=== PATIENT | female | born 1990 | race African-American/Black ===

== ENCOUNTER 2020-06-13 00:10 | Emergency (ER) | payer MEDICAID ==
[~2020-06-13] VITALS: Ht 160 cm; Wt 45.8 kg
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
[2020-06-13 01:18] LABS: BILIRUBIN,URINE NEG (NEG); CLARITY,URINE CLEAR; COLOR,URINE YELLOW; GLUCOSE,URINE NEG (NEG); NITRITE,URINE POS (NEG)
[2020-06-13 01:19] LABS: BACTERIA,URINE FEW /HPF (0-FEW); RBC,URINE 0 /HPF (0-2); SQUAMOUS EPITHELIAL CELL,UR MOD /LPF
[2020-06-13 01:20] LABS: U PREG PATIENT NEGATIVE (NEG)
[2020-06-13] MEDS ORDERED: CEPH500C PO (01:27)
[2020-06-13] MEDS ORDERED: CEPHALEXIN 250 MG CAPSULE PO ONE (01:30)
[2020-06-13 01:38] VITALS: BP 122/96
== END 2020-06-13 01:38 | disposition home or self-care (01) ==
LOC: ER 00:10
DX: N39.0 Urinary tract infection, site not specified (principal); K92.1 Melena; R51.9 Headache, unspecified
CPT/HCPCS: 81001; 81025; 87086; 99284

== ENCOUNTER 2020-06-14 06:20 | Emergency (ER) | payer MEDICAID ==
[~2020-06-14] VITALS: Ht 160 cm; Wt 45.8 kg
[~2020-06-14 06:20] MED LIST: CEPH500C PO
--- NOTE | 2020-06-14 06:56 | PHYS DOC ---
Past History Past Medical History: Other Additional Past Medical Histor: [facility] Past Surgical History: No Surgical History Alcohol Use: None General Adult EDM: Chief Complaint: OTHER COMPLAINTS HPI: HPI: 30-year-old female who denies any past medical history presents the ED with complaints of " I am scared to leave my house, they are going to get me." States "sometimes the TV talks to me and tells me I've done something wrong." Pt was seen in ED yesterday for nitrate positive UTI and hematuria. Patient did not fill her prescription. 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 States she was so scared that she smoked marijuana last night with her mother. Reports family history of schizoaffective disorder and bipolar disorder. Denies SI/HI. Yesterday reported people were putting a "hex" on her. Review of Systems: Review of Systems: Constitutional: Denies fever or chills Eyes: Denies change in visual acuity HENT: Denies nasal congestion or sore throat Respiratory: Denies cough or shortness of breath Cardiovascular: Denies chest pain or edema GI: Denies abdominal pain, nausea, vomiting, bloody stools or diarrhea : Denies dysuria or hematuria Musculoskeletal: Denies back pain or joint pain Integument: Denies rash or diaphoresis Neurologic: Denies headache, focal weakness or sensory changes Endocrine: Denies polyuria or polydipsia Lymphatic: Denies swollen glands Psychiatric: Denies depression or anxiety Allergies: Allergies: Allergies Coded Allergies Type Severity Reaction Last Updated Verified Unable to Assess 06/13/20 No Physical Exam: PE: Constitutional: Well developed, well nourished, no acute distress, non-toxic appearance. HENT: Normocephalic, atraumatic, Eyes: EOMI, conjunctiva normal, no discharge. Neck: Normal range of motion, supple, Cardiovascular: S1/2 present, regular rhythm Lungs & Thorax: Speaking in full sentences, bilateral equal chest rise, no tachypnea or increased work of breathing Abdomen: soft, no tenderness, Skin: Warm, dry, no erythema, no rash. [] Back: No tenderness, no CVA tenderness. [] Extremities: No tenderness, no cyanosis, no edema Neurologic: Alert and oriented X 3, normal motor function, normal sensory function, no focal deficits noted. [] Psychologic: flat affect, depressed and tearful, mood-flat affect, depressed, very disorganized thought processing - hard to discern given random thought processing, also appears intoxicated Current Patient Data: Vital Signs: Vital Signs Date Time Temp Pulse Resp B/P (MAP) Pulse Ox O2 Delivery O2 Flow Rate FiO2 06/14/20 06:30 99.1 91 18 120/82 (95) 99 Room Air EKG: EKG: [] Radiology/Procedures: Radiology/Procedures: [] Heart Score: Risk Factors: Risk Factors: DM, Current or recent (<one month) smoker, HTN, HLP, family history of CAD, obesity. Risk Scores: Score 0 - 3: 2.5% MACE over next 6 weeks - Discharge Home Score 4 - 6: 20.3% MACE over next 6 weeks - Admit for Clinical Observation Score 7 - 10: 72.7% MACE over next 6 weeks - Early Invasive Strategies Course & Med Decision Making: Course & Med Decision Making Pertinent Labs and Imaging studies reviewed. (See chart for details) Patient presents to the ED with paranoia, persecutory delusions, auditory hallucinations and very disorganized thought processing, concerning for new onset schizophrenia vs acute psychosis. Pt is medically cleared. PAT team assessed pt and majority of pts' sxs resolved. On re-eval patient with clear thought processing, no paranoia, with medical decision capacity and not a danger to herself or others. Suspect substance-induced mood disorder with paranoia. If there is some type of underlying mental illness, patient very reasonable now with no hallucinations or disorganized thought processing and has medical decision-making capacity. Agrees with outpatient management. Discouraged marijuana use. Will discharge home with strict ED return precautions were given for psychosis, suicidal or homicidal ideations. Encouraged urgent outpatient follow-up with PMD and psychiatry, or sign guidance Center. Life-threatening processes were considered but are low suspicion at this time, given history, physical exam and ED workup. Pt was educated on all prescription medications and adverse effects. All patient's questions were answered and pt was stable at time of discharge. Life/limb-threatening differential includes but is not limited to, end organ damage/sepsis, trauma/abuse/neglect, neurologic deficit, alcohol/drug ingestion, toxidrome, suicidal/homicidal ideations plans or attempts, psychosis or mental illness resulting in self neglect and inability to care for self. I spoken with the patient and her caregivers. I explained the patient's condition, diagnoses and treatment plan based on the information available to me at this time. I have answered the patient and her caregiver's questions and addressed any concerns. The patient and her caregivers have a good understanding of patient's diagnosis, condition and treatment plan as can be expected at this point. Vital signs have been stable. Patient's condition is stable and appropriate for discharge from the emergency department. Patient will pursue further outpatient evaluation with primary care physician or other designated or consulting physician as outlined in the discharge instructions. The patient and/or caregivers are agreeable to this plan of care and follow-up instructions have been explained in detail. The patient and/or caregivers have received these instructions in written form and have expressed an understanding of the discharge instructions. The patient and/or caregivers are aware that any significant change of condition or worsening of symptoms should prompt immediate return to this or the closest emergency department or call to [facility]. Seb Disclaimer: Dragjohnny Disclaimer: This electronic medical record was generated, in whole or in part, using a voice recognition dictation system. Departure Departure: Impression: Primary Impression: Substance induced mood disorder Additional Impressions: Mild tetrahydrocannabinol (THC) abuse Auditory hallucinations Disposition: 01 DC HOME SELF CARE/HOMELESS Condition: STABLE Referrals: PCP,NO (PCP) FOLLOW UP WITH FAMILY MEDICINE: [facility], [facility] [address] [facility] [address] [place] [address], [facility] Instructions: Hallucinations and Delusions, Mood Disorders, Substance Abuse-Brief Additional Instructions: FOLLOW UP WITH PSYCHIATRY: [facility] [address] , [facility] [address] [place] [address] [facility] [address] [place] [address] Becky DELATORRE [address], [facility] [address] [place] [address] [facility] [address] [place] [address] [employer], [facility] 24/12 crisis stabilization services [address] [place] [address] EMERGENCY DEPARTMENT GENERAL DISCHARGE INSTRUCTIONS Thank you for coming to [facility] (ED) today and trusting us with you care. We trust that you had a positivie experience in our Emergency Department. If you wish to speak to the department management, you may call the director at [phone]. YOUR FOLLOW UP INSTRUCTIONS ARE FOLLOWS: 1. Do you have a private Doctor? If you do not have a private doctor, please ask for a resource list of physicians or clinics that may be able to assist you with follow up care. 2. The Emergency Physician has interpreted your x-rays. The X-Ray specialist will also review them. If there is a change in the findings, you will be notified in 48 hours when at all possible. 3. A lab test or culture has been done, your results will be reviewed and you will be notified if you need a change in treatment. ADDITIONAL INSTRUCTIONS AND INFORMATION: 1. Your care today has been supervised by a physician who is specially trained in emergency care. Many problems require more than one evaluation for a complete diagnosis and treatment. We recommend that you schedule your follow up appointment as recommended to ensure complete treatment of you illness or injury. If you are unable to obtain follow up care and continue to have a problem, or if your condition worsens, we recommend that you return to the ED. 2. We are not able to safely determine your condition over the phone nor are we able to give sound medical advice over the phone. For these safety reasons, if you call for medical advice we will ask you to come to the ED for further evaluation. 3. If you have any questions regarding these discharge instructions please call the ED at [phone]. SAFETY INFORMATION: In the interest of safety, wellness, and injury prevention; we encourage you to wear your sealbelt, if you smoke; quite smoking, and we encourage family to use a protective helmet for bicycling and other sporting events that present an increased risk for head injury. IF YOUR SYMPTOMS WORSEN OR NEW SYMPTOMS DEVELOP, OR YOU HAVE CONCERNS ABOUT YOUR CONDITION; OR IF YOUR CONDITION WORSENS WHILE YOU ARE WAITING FOR YOUR FOLLOW UP APPOINTMENT; EITHER CONTACT YOUR PRIMARY CARE DOCTOR, THE PHYSICIAN WHOSE NAME AND NUMBER YOU WERE Carrington DORSEY, OR RETURN TO THE ED IMMEDIATELY. ARA MCCLAIN DO Jun 14, 2020 06:56
[2020-06-14] MEDS ORDERED: FOSFOMYCIN TROMETHAMINE 3 GM PACKET PO ONE (07:15)
[2020-06-14 07:22] LABS: BACTERIA,URINE FEW /HPF (0-FEW); BARBITURATES NEG (NEG); BENZODIAZEPINES NEG (NEG); BILIRUBIN,URINE NEG (NEG); CANNABINOIDS POS (NEG); CLARITY,URINE HAZY; COCAINE NEG (NEG); COLOR,URINE AMBER; GLUCOSE,URINE NEG (NEG); METHADONE NEG (NEG); NITRITE,URINE NEG (NEG); OPIATES NEG (NEG); PHENCYCLIDINE NEG (NEG); RBC,URINE RARE /HPF (0-2); SQUAMOUS EPITHELIAL CELL,UR MOD /LPF; UROBILINOGEN,URINE 0.2 mg/dL (0.2 mg/dL); WBC,URINE OCC /HPF (0-4)
[2020-06-14 07:26] LABS: AMPHETAMINE/METHAMPHETAMINE NEG (NEG)
[2020-06-14 07:49] LABS: BASO % 1 % (0-3); EOS % 1 % (0-3); HEMATOCRIT 37.6 % (36.0-47.0); HEMOGLOBIN 12.6 g/dL (12.0-15.5); LYMPH # 1.4 x10^3/uL (1.0-4.8); LYMPH % 24 % (24-48); MEAN CORPUSCULAR HEMOGLOBIN 31 pg (25-35); MEAN CORPUSCULAR HGB CONC 33 g/dL (31-37); MEAN CORPUSCULAR VOLUME 92 fL (79-100); MONO # 0.5 x10^3/uL (0.0-1.1); MONO % 8 % (0-9); NEUT # 3.9 x10^3uL (1.8-7.7); NEUT % 67 % (31-73); PLATELET COUNT 253 x10^3/uL (140-400); RED BLOOD COUNT 4.11 x10^6/uL (3.50-5.40); RED CELL DISTRIBUTION WIDTH 14.7 % (11.5-14.5); WHITE BLOOD COUNT 5.8 x10^3/uL (4.0-11.0)
[2020-06-14 07:50] LABS: CALCIUM 8.5 mg/dL (8.5-10.1); CREATININE 0.8 mg/dL (0.6-1.0); GFR 101.9; POTASSIUM 3.7 mmol/L (3.5-5.1)
[2020-06-14 07:56] LABS: ALBUMIN 4.1 g/dL (3.4-5.0); ALBUMIN/GLOBULIN RATIO 1.3 (1.0-1.7); TOTAL BILIRUBIN 0.7 mg/dL (0.2-1.0); TOTAL PROTEIN 7.3 g/dL (6.4-8.2)
[2020-06-14 11:45] VITALS: BP 90/61
== END 2020-06-14 12:05 | disposition home or self-care (01) ==
LOC: ER 06:20
DX: F19.94 Other psychoactive substance use, unspecified with psychoactive substance-induced mood disorder (principal); F12.10 Cannabis abuse, uncomplicated; R44.0 Auditory hallucinations
CPT/HCPCS: 36415; 80053; 80307; 81001; 81025; 85025; 99284

== ENCOUNTER 2020-08-10 09:15 | Emergency (ER) | payer MEDICAID ==
[~2020-08-10] VITALS: Ht 152.4 cm; Wt 44.4 kg
[2020-08-10] MEDS: ZIPRASIDONE IM 20 MG VIAL. IM ONE (11:00)
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
[2020-08-10 12:25] LABS: BASO % 1 % (0-3); EOS % 1 % (0-3); HEMATOCRIT 37.2 % (36.0-47.0); HEMOGLOBIN 12.1 g/dL (12.0-15.5); LYMPH # 1.4 x10^3/uL (1.0-4.8); LYMPH % 41 % (24-48); MEAN CORPUSCULAR HEMOGLOBIN 31 pg (25-35); MEAN CORPUSCULAR HGB CONC 32 g/dL (31-37); MEAN CORPUSCULAR VOLUME 94 fL (79-100); MONO # 0.3 x10^3/uL (0.0-1.1); MONO % 8 % (0-9); NEUT # 1.7 x10^3uL (1.8-7.7); NEUT % 49 % (31-73); PLATELET COUNT 204 x10^3/uL (140-400); RED BLOOD COUNT 3.96 x10^6/uL (3.50-5.40); RED CELL DISTRIBUTION WIDTH 14.9 % (11.5-14.5); WHITE BLOOD COUNT 3.5 x10^3/uL (4.0-11.0)
[2020-08-10 12:30] LABS: CALCIUM 8.2 mg/dL (8.5-10.1); GFR 78.8
[2020-08-10 12:36] LABS: ALBUMIN 3.7 g/dL (3.4-5.0); ALBUMIN/GLOBULIN RATIO 1.2 (1.0-1.7); TOTAL BILIRUBIN 0.4 mg/dL (0.2-1.0); TOTAL PROTEIN 6.7 g/dL (6.4-8.2)
[2020-08-10 12:38] LABS: ACETAMIN < 2.0 mcg/mL (10-30); SALIC < 2.8 mg/dL (2.8-20.0)
[2020-08-10 12:39] LABS: ETHANOL < 10 mg/dL (0-10)
--- NOTE | 2020-08-10 14:29 | EKG ---
[address] [address] Test Date: 2020-08-10 Test Time: 12:11:21 Pat Name: HENRIK SHERMAN Department: Room: Gender: F Health Care Administrator: CASSIE : 1990 Requested By: STEVEN MÉNDEZ Order Number: [id number] Reading MD: Measurements Intervals [place] Rate: 84 P: 57 MN: 150 QRS: 45 QRSD: 76 T: 31 QT: 366 QTc: 436 Interpretive Statements SINUS RHYTHM NORMAL ECG RI6.02 No previous ECG available for comparison
[2020-08-10 17:14] LABS: BILIRUBIN,URINE NEG (NEG); CLARITY,URINE CLEAR; COLOR,URINE YELLOW; GLUCOSE,URINE NEG (NEG); NITRITE,URINE NEG (NEG); UROBILINOGEN,URINE 0.2 mg/dL (0.2 mg/dL)
[2020-08-10 17:17] LABS: AMPHETAMINE/METHAMPHETAMINE NEG (NEG); BARBITURATES NEG (NEG); BENZODIAZEPINES NEG (NEG); CANNABINOIDS POS (NEG); COCAINE NEG (NEG); METHADONE NEG (NEG); OPIATES NEG (NEG); PHENCYCLIDINE NEG (NEG)
[2020-08-10 17:19] LABS: BACTERIA,URINE FEW /HPF (0-FEW); RBC,URINE OCC /HPF (0-2); SQUAMOUS EPITHELIAL CELL,UR MANY /LPF; WBC,URINE OCC /HPF (0-4)
[2020-08-10] MEDS ORDERED: POTASSIUM CHLORIDE 20 MEQ TABLET.ER. PO ONE (17:30)
[2020-08-10] MEDS: POTASSIUM BICARB 20 MEQ EFFERVESCENT TABLET. PO ONE (17:57)
[2020-08-10] MEDS: RINGERS LACTATED IV ONE (18:46)
[2020-08-11] MEDS ORDERED: KETOROLAC 15 MG/ML VIAL. ONE (15:05)
[2020-08-11] MEDS ORDERED: BENZONATATE 100 MG CAPSULE. PO ONE (15:05)
[2020-08-11 16:40] VITALS: BP 105/58
== END 2020-08-11 18:05 ==
LOC: ER 09:15
DX: R45.851 Suicidal ideations (principal); F23 Brief psychotic disorder; F32.9 Major depressive disorder, single episode, unspecified; F17.210 Nicotine dependence, cigarettes, uncomplicated; Z20.822 Contact with and (suspected) exposure to COVID-19
CPT/HCPCS: 36415; 80053; 80307; 80329; 81001; 81025; 83735; 85025; 87426; 93005; 96360; 96372; 99285; G0480; J3486; J7120; U0003

== ENCOUNTER 2020-12-04 17:08 | Emergency (ER) | payer MEDICAID ==
[~2020-12-04] VITALS: Ht 152.4 cm; Wt 44.4 kg
[2020-12-04 17:11] VITALS: BP 122/58
[2020-12-04] MEDS ORDERED: HYDROcodone/APAP 5/325MG 1 TAB TABLET PO ONE ×2 (17:30→18:30)
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
--- NOTE | 2020-12-04 17:43 | RAD ---
EXAM: XR FOOT_RIGHT 3 VIEWS 12/04/2020 5:25 PM CLINICAL INDICATION: Trauma, pain COMPARISON: None TECHNIQUE: 3 views of the right foot FINDINGS: There is a transverse fracture at the base of the medial cuneiform. Possible tiny osseous flake between the base of first and second metatarsals and mild widening of the Lisfranc interval. Susan int spaces are maintained. No focal soft tissue abnormality. IMPRESSION: Fracture of the medial cuneiform and possible Lisfranc injury. Recommend CT to further e valuate. Electronically signed by: Rayna Chavez MD (12/04/2020 5:41 PM) [id number]
[2020-12-04] MEDS ORDERED: HYDR-2759 PO (18:23)
== END 2020-12-04 18:50 | disposition home or self-care (01) ==
LOC: ER 17:08 → EEVIPCON 17:08 → ER 18:50
DX: S92.901A Unspecified fracture of right foot, initial encounter for closed fracture (principal); F17.210 Nicotine dependence, cigarettes, uncomplicated; X58.XXXA Exposure to other specified factors, initial encounter; Y93.89 Activity, other specified; Y92.89 Other specified places as the place of occurrence of the external cause; Y99.8 Other external cause status
CPT/HCPCS: 29515; 73630; 99283-25

== ENCOUNTER 2020-12-16 19:53 | Emergency (ER) | payer MEDICAID ==
[~2020-12-16] VITALS: Ht 152.4 cm; Wt 44.4 kg
[~2020-12-16 19:53] MED LIST changes: +HYDR-2759 PO
--- NOTE | 2020-12-16 20:15 | PHYS DOC ---
Past History Past Medical History: Depression Past Surgical History: No Surgical History Smoking: Cigarettes Alcohol Use: Occasionally Adult General Chief Complaint Chief Complaint: SHORTNESS OF BREATH HPI HPI Patient is a 32-year-old female with past medical history significant for anxiety and recent right ankle fracture who presents with a chief complaint of acute onset chest discomfort and feelings of shortness of breath. States that it started last night as she was just sitting there, is centralized, sharp in nature, worse with inspiration and movement. States he has never felt anything like this before but does feel a little similar to anxiety attack she has had in the past. States she is a current smoker and has COPD as well. No recent traumas, travels, illnesses, fevers, known ill contacts, abdominal pain, nausea, vomiting, dysuria, hematuria or blood in the stool. States the only medication she is on is olanzapine for anxiety which she is taking as prescribed. Review of Systems Review of Systems Review of systems otherwise unremarkable except noted in HPI Current Medications Current Medications Current Medications Medications (Trade) Dose Ordered Sig/Bogdan Start Time Stop Time Status Last Admin Dose Admin Fentanyl Citrate (Fentanyl 2ml Vial) 50 mcg 1X ONCE 12/16/20 20:00 12/16/20 20:01 UNV 12/16/20 20:10 50 MCG Allergies Allergies Allergies Coded Allergies Type Severity Reaction Last Updated Verified No Known Drug Allergies 08/10/20 No Physical Exam Physical Exam Constitutional: Well developed, well nourished, no acute distress, non-toxic appearance. [] HENT: Normocephalic, atraumatic, oropharynx moist, no oral exudates, Eyes: PERRLA, EOMI, conjunctiva normal, no discharge. [] Neck: Normal range of motion, no tenderness, supple, no stridor, no lymphadenopathy. [] Cardiovascular:Heart rate regular rhythm, no murmur [] Lungs & Thorax: Bilateral breath sounds clear to auscultation [] Abdomen: Bowel sounds normal, soft, no tenderness, no masses, no pulsatile masses. [] Skin: Warm, dry, no erythema, no rash. [] Back: No tenderness, no CVA tenderness. [] Extremities: Right lower extremity with some tenderness left over from ankle fracture, with no obvious deformities, swelling or bruising. Neurovascular exam intact Neurologic: Alert and oriented X 3, no focal deficits noted. [] Psychologic: Affect normal, judgement normal, mood anxious. [] Current Patient Data Vital Signs Vital Signs Date Time Temp Pulse Resp B/P (MAP) Pulse Ox O2 Delivery O2 Flow Rate FiO2 12/16/20 20:10 Room Air 12/16/20 19:55 98.5 135 50 105/58 100 EKG EKG Rate of 111, QRS of 76, QTc of 438, no STEMI [] Radiology/Procedures Radiology/Procedures [] RIGHT: No thrombus identified in the common femoral vein, femoral vein, popliteal vein or visualized calf veins. LEFT: No thrombus identified in the common femoral vein, femoral vein, popliteal vein or visualized calf veins. IMPRESSION: * No thrombus identified in deep venous system of bilateral lower extremities. Electronically signed by: Rivera Perez MD (12/17/2020 1:14 AM) [employer] [id number] ORIGINAL REPORT INDICATION: Reason: , vaginal bleeding / Spl. Instructions: / History: COMPARISON: None. TECHNIQUE: Grayscale and color ultrasound images uterus and adnexa. Transabdominal and transvaginal images obtained. Transvaginal images were needed to better visualize structures that were limited on transabdominal imaging. FINDINGS: Uterus: 67 x 43 x 36 mm. 5 mm endometrial stripe Right ovary is 33 x 28 x 14 mm with vascular flow. Left ovary obscured. There is some free fluid within the pelvis. There is some fluid within the endometrial stripe. Echogenic foci within uterus IMPRESSION: * Vascular flow seen to the right ovary with left ovary obscured. * There is some fluid within the endometrial stripe. Echogenic foci within the uterus which could be small foci of air or calcification * No intrauterine gestational sac is seen. Electronically signed by: Rivera Perez MD (12/17/2020 12:51 AM) [employer] Hang[employer]- [id number] DICTATED AND SIGNED BY: RIVERA PEREZ MD DATE: 12/17/20112 CC: OCTAVIANO JOLLY MD; PCP,NO ~ INDICATION: Reason: , vaginal bleeding / Spl. Instructions: / History: COMPARISON: None. TECHNIQUE: Grayscale and color ultrasound images uterus and adnexa. Transabdominal and transvaginal images obtained. Transvaginal images were needed to better visualize structures that were limited on transabdominal imaging. FINDINGS: Uterus: 67 x 43 x 36 mm. 5 mm endometrial stripe Right ovary is 33 x 28 x 14 mm with vascular flow. Left ovary obscured. There is some free fluid within the pelvis. There is some fluid within the endometrial stripe. Echogenic foci within uterus IMPRESSION: * Vascular flow seen to the right ovary with left ovary obscured. * There is some fluid within the endometrial stripe. Echogenic foci within the uterus which could be small foci of air or calcification * No intrauterine gestational sac is seen. Electronically signed by: Rivera Perez MD (12/17/2020 12:51 AM) DESKTOP- [id number] Heart Score C/O Chest Pain: Yes HEART Score for Chest Pain: HEART Score for Chest Pain Response (Comments) Value History Slighlty/Non-Suspicious 0 ECG Normal 0 Age < 45 0 Risk Factors 1 or 2 Risk Factors 1 Troponin < Normal Limit 0 Total 1 Risk Factors: Risk Factors: DM, Current or recent (<one month) smoker, HTN, HLP, family history of CAD, obesity. Risk Scores: Risk Factors: DM, Current or recent (<one month) smoker, HTN, HLP, family history of CAD, obesity. Course & Med Decision Making Course & Med Decision Making Patient is a 30-year-old female who presents with a chief complaint of pleuritic chest pain and shortness of breath which started last night Vital signs notable for tachycardia and tachypnea. Physical exam noted above. Laboratory analysis notable for elevated D-dimer and asymptomatic bacteriuria. Given patient's tachycardia, tachypnea and acute chest pain with elevated dimer discussed differential diagnosis with patient including ACS, VTE, pneumonia. Given patient's new diagnosis, with no care and no ultrasound, transvaginal ultrasound obtained showing no intrauterine gestational sac at this time with some fluid in the endometrial stripe. This is not surprising since patient had a normal menstrual period that ended about 3 weeks ago or so so she would be early on in . Bilateral ultrasound showed no DVT. On reassessment patient stated she was feeling much better and would like to be discharged home. Discussed the differential and utility of CTA of the chest to completely rule out PE. Patient states that she was feeling much better and did not want to have herself or the baby exposed to that radiation at this time and asked to be discharged home. Had a long discussion of the risks of this if she did have a PE including significant illness, chest pain, dis ability and in the worst case scenario . Advised to call her primary care physician first thing in the morning to update on ED visit and set up a follow- up as soon as she can. Gave contact information for local primary cares, and free clinics as well as OB contacts. Gave strict return precautions to the ED. Patient grateful, verbalized understanding and agreed with plan of discharge. [] Dragon Disclaimer Dragon Disclaimer This electronic medical record was generated, in whole or in part, using a voice recognition dictation system. Departure Departure: Impression: Primary Impression: Additional Impression: Chest pain Disposition: HOME / SELF CARE / HOMELESS Condition: GOOD Referrals: PCP,KAVITA (PCP) YANN HERNANDEZ Patient Instructions: ABCs of , Chest Pain (Nonspecific), Pulmonary Embolus Additional Instructions: Thank you for coming into the emergency department tonight and allowing us to take care of you. Please read all of the attached information very carefully to go back over the things we discussed especially now that you are , have had chest pain and reeducate yourself on the blood clot in the lungs as well as the risks of this that we went over including continued chest pain, shortness of breath, disability and in worse case scenario . Please call your primary care physician or OB first thing in the morning or call to establish care at one of the numbers given to you first thing in the morning and set up follow-up appointments as soon as you can, preferably over the next week. Please come back to the emergency department immediately with new or concerning symptoms as we discussed. Problem Qualifiers OCTAVIANO JOLLY MD Dec 16, 2020 20:15
[2020-12-16 20:34] LABS: HEMATOCRIT 35.4 % (36.0-47.0); HEMOGLOBIN 11.9 g/dL (12.0-15.5); RED BLOOD COUNT 3.99 x10^6/uL (3.50-5.40); WHITE BLOOD COUNT 7.7 x10^3/uL (4.0-11.0)
[2020-12-16 20:43] LABS: CALCIUM 9.2 mg/dL (8.5-10.1); GFR 78.8; POTASSIUM 3.8 mmol/L (3.5-5.1)
[2020-12-16 20:52] LABS: CLARITY,URINE CLOUDY; COLOR,URINE AMBER
[2020-12-16 20:53] LABS: BACTERIA,URINE FEW /HPF (0-FEW); BILIRUBIN,URINE SMALL (NEG); GLUCOSE,URINE NEG (NEG); NITRITE,URINE NEG (NEG); RBC,URINE 20-40 /HPF (0-2); SQUAMOUS EPITHELIAL CELL,UR FEW /LPF; WBC,URINE RARE /HPF (0-4)
--- NOTE | 2020-12-16 21:04 | EKG ---
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
--- NOTE | 2020-12-17 00:53 | RAD ---
INDICATION: Reason: , vaginal bleeding / Spl. Instructions: / History: COMPARISON: None. TECHNIQUE: Grayscale and color ultrasound images uterus and adnexa. Transabdominal and transvaginal images obtained. Transvaginal images were needed to better visualize structures that were limited on transabdominal imaging. FINDINGS: Uterus: 67 x 43 x 36 mm. 5 mm endometrial stripe Right ovary is 33 x 28 x 14 mm with vascular flow. Left ovary obscured. There is some free fluid within the pelvis. There is some fluid within the endometrial stripe. Echogenic foci within uterus IMPRESSION: * Vascular flow seen to the right ovary with left ovary obscured. * There is some fluid within the endometrial stripe. Echogenic foci within the uterus which could be small foci of air or calcification * No intrauterine gestational sac is seen. Electronically signed by: Moe ePrez MD (12/17/2020 12:51 AM) [id number]
[2020-12-17 02:00] VITALS: BP 107/76
[2020-12-17] MEDS ORDERED: CEPHALEXIN 250 MG CAPSULE PO ONE (02:00)
== END 2020-12-17 02:09 | disposition home or self-care (01) ==
LOC: ER 19:53
DX: O26.891 Other specified pregnancy related conditions, first trimester (principal); R07.89 Other chest pain; R06.02 Shortness of breath; O99.511 Diseases of the respiratory system complicating pregnancy, first trimester; J44.9 Chronic obstructive pulmonary disease, unspecified; O99.331 Smoking (tobacco) complicating pregnancy, first trimester; Z3A.00 Weeks of gestation of pregnancy not specified
CPT/HCPCS: 36415; 76830; 80048; 81001; 81025; 84484; 85027; 85379; 93005; 93970; 96374; 96376; 99285; J3010

== ENCOUNTER 2021-01-01 10:45 | Emergency (ER) | payer MEDICAID ==
[~2021-01-01] VITALS: Ht 160 cm; Wt 44.4 kg
[2021-01-01 10:53] VITALS: BP 114/89
[2021-01-01] MEDS ORDERED: diphenhydrAMINE HCL 25 MG CAPSULE PO ONE (11:00)
[2021-01-01] MEDS ORDERED: ACETAMINOPHEN 500 MG TABLET PO ONE (11:00)
[2021-01-01] MEDS ORDERED: IBUPROFEN 600 MG TABLET. PO ONE ×2 (11:00)
--- NOTE | 2021-01-01 11:20 | PHYS DOC ---
Past History Past Medical History: Depression Additional Past Medical Histor: Trich (PHILLIP GAMBLE APRN) Past Surgical History: No Surgical History (PHILLIP GAMBLE APRN) Smoking: Cigarettes Alcohol Use: Occasionally (PHILLIP GAMBLE APRN) General Adult EDM: Chief Complaint: FATIGUE HPI: HPI: Patient is a 30-year-old female who presents with loss of appetite for 1 week. Patient denies fever. Denies nausea/vomiting/diarrhea. Denies recent illness. History of depression. (PHILLIP GAMBLE APRN) Review of Systems: Review of Systems: Constitutional: Denies fever or chills, reports loss of appetite Eyes: Denies change in visual acuity HENT: Denies nasal congestion or sore throat Respiratory: Denies cough or shortness of breath Cardiovascular: Denies chest pain or edema GI: Denies abdominal pain, nausea, vomiting, bloody stools or diarrhea : Denies dysuria Musculoskeletal: Denies back pain or joint pain Integument: Denies rash Neurologic: Denies headache, focal weakness or sensory changes Endocrine: Denies polyuria or polydipsia Lymphatic: Denies swollen glands Psychiatric: Reports depression (PHILLIP GAMBLE APRN) Current Medications: Current Meds: Current Medications Medications (Trade) Dose Ordered Sig/Bogdan Start Time Stop Time Status Last Admin Dose Admin Acetaminophen (Tylenol) 1,000 mg 1X ONCE 01/01/21 11:00 01/01/21 11:01 DC Diphenhydramine HCl (Benadryl) 25 mg 1X ONCE 01/01/21 11:00 01/01/21 11:01 DC Ibuprofen (Motrin) 600 mg 1X ONCE 01/01/21 11:00 01/01/21 11:01 UNV (PHILLIP GAMBLE APRN) Allergies: Allergies: Allergies Coded Allergies Type Severity Reaction Last Updated Verified No Known Drug Allergies 08/10/20 No (PHILLIP GAMBLE APRN) Physical Exam: PE: Constitutional: Well developed, well nourished, no acute distress, non-toxic chen earance. [] HENT: Normocephalic, atraumatic, bilateral external ears normal, oropharynx moist, no oral exudates, nose normal. [] Eyes: PERRLA, EOMI, conjunctiva normal, no discharge. [] Neck: Normal range of motion, no tenderness, supple, no stridor. [] Cardiovascular:Heart rate regular rhythm, no murmur [] Lungs & Thorax: Bilateral breath sounds clear to auscultation [] Abdomen: Bowel sounds normal, soft, no tenderness, no masses, no pulsatile masses. [] Skin: Warm, dry, no erythema, no rash. [] Back: No tenderness, no CVA tenderness. [] Extremities: No tenderness, no cyanosis, no clubbing, ROM intact, no edema. [] Neurologic: Alert and oriented X 3, normal motor function, normal sensory function, no focal deficits noted. [] Psychologic: Affect normal, judgement normal, mood normal. [] (PHILLIP GAMBLE APRN) Current Patient Data: Labs: Laboratory Tests Test 01/01/21 11:10 POC Urine HCG, Qualitative hcg negative (Negative) Vital Signs: Vital Signs Date Time Temp Pulse Resp B/P (MAP) Pulse Ox O2 Delivery O2 Flow Rate FiO2 01/01/21 10:53 97.9 72 18 114/89 100 Room Air (PHILLIP GAMBLE APRN) EKG: EKG: [] (PHILLIP GAMBLE APRN) Radiology/Procedures: Radiology/Procedures: [] (PHILLIP GAMBLE APRN) Heart Score: C/O Chest Pain: No Risk Factors: Risk Factors: DM, Current or recent (<one month) smoker, HTN, HLP, family history of CAD, obesity. Risk Scores: Score 0 - 3: 2.5% MACE over next 6 weeks - Discharge Home Score 4 - 6: 20.3% MACE over next 6 weeks - Admit for Clinical Observation Score 7 - 10: 72.7% MACE over next 6 weeks - Early Invasive Strategies (PHILLIP GAMBLE APRN) Course & Med Decision Making: Course & Med Decision Making Pertinent Labs and Imaging studies reviewed. (See chart for details) [] 3-year-old female presents with loss of appetite for 1 week. Patient's denying any recent illness. Patient states that she is able to eat and drink okay. Denies nausea or vomiting. Last menstrual period. test is negative. Patient was tested for Covid. Patient was given Tylenol and Motrin. Patient discharged to home with follow-up with PCP. Instructed patient to make sure she is drinking plenty of fluids. Ibuprofen and Tylenol at home. Patient is hemodynamically stable. (PHILLIP GAMBLE APRN) Course & Med Decision Making Did not see or evaluate patient. Agree with BAGGAGE HANDLER's work-up and disposition per note (OCTAVIANO JOLLY MD) Seb Disclaimer: Seb Disclaimer: This electronic medical record was generated, in whole or in part, using a voice recognition dictation system. (PHILLIP GAMBLE APRN) Departure Departure: Impression: Primary Impression: Appetite loss Disposition: HOME / SELF CARE / HOMELESS Condition: STABLE Referrals: PCP,NO (PCP) Additional Instructions: You were seen in the emergency room for loss of appetite for the past week. You were given ibuprofen and Tylenol. Your urine test was negative. Please continue taking ibuprofen and Tylenol for discomfort at home. Drink plenty of fluids. Follow-up with your PCP. Return emergency room if you have worsening symptoms or concerns peer EMERGENCY DEPARTMENT GENERAL DISCHARGE INSTRUCTIONS Thank you for coming to [facility] (ED) today and trusting us with you care. We trust that you had a positivie experience in our Emergency Department. If you wish to speak to the department management, you may call the director at [phone]. YOUR FOLLOW UP INSTRUCTIONS ARE FOLLOWS: 1. Do you have a private Doctor? If you do not have a private doctor, please ask for a resource list of physicians or clinics that may be able to assist you with follow up care. 2. The Emergency Physician has interpreted your x-rays. The X-Ray specialist will also review them. If there is a change in the findings, you will be notified in 48 hours when at all possible. 3. A lab test or culture has been done, your results will be reviewed and you will be notified if you need a change in treatment. ADDITIONAL INSTRUCTIONS AND INFORMATION: 1. Your care today has been supervised by a physician who is specially trained in emergency care. Many problems require more than one evaluation for a complete diagnosis and treatment. We recommend that you schedule your follow up appointment as recommended to ensure complete treatment of you illness or injury. If you are unable to obtain follow up care and continue to have a problem, or if your condition worsens, we recommend that you return to the ED. 2. We are not able to safely determine your condition over the phone nor are we able to give sound medical advice over the phone. For these safety reasons, if you call for medical advice we will ask you to come to the ED for further evaluation. 3. If you have any questions regarding these discharge instructions please call the ED at [phone]. SAFETY INFORMATION: In the interest of safety, wellness, and injury prevention; we encourage you to wear your sealbelt, if you smoke; quite smoking, and we encourage family to use a protective helmet for bicycling and other sporting events that present an increased risk for head injury. IF YOUR SYMPTOMS WORSEN OR NEW SYMPTOMS DEVELOP, OR YOU HAVE CONCERNS ABOUT YOUR CONDITION; OR IF YOUR CONDITION WORSENS WHILE YOU ARE WAITING FOR YOUR FOLLOW UP APPOINTMENT; EITHER CONTACT YOUR PRIMARY CARE DOCTOR, THE PHYSICIAN WHOSE NAME AND NUMBER YOU WERE GIVEN, OR RETURN TO THE ED IMMEDIATELY. PHILLIP GAMBLE APRN Jan 01, 2021 11:20 OCTAVIANO JOLLY MD Jan 01, 2021 17:29
== END 2021-01-01 11:25 | disposition home or self-care (01) ==
LOC: ER 10:45
DX: R63.0 Anorexia (principal); F17.210 Nicotine dependence, cigarettes, uncomplicated; Z20.822 Contact with and (suspected) exposure to COVID-19
CPT/HCPCS: 81025; 99284; C9803; Q0163; U0003

== ENCOUNTER 2021-01-03 06:11 | Emergency (ER) | payer MEDICAID ==
[~2021-01-03] VITALS: Ht 160 cm; Wt 44.4 kg
[2021-01-03 07:20] LABS: BASO % 1 % (0-3); EOS # 0.1 x10^3/uL (0.0-0.7); EOS % 2 % (0-3); HEMATOCRIT 38.5 % (36.0-47.0); HEMOGLOBIN 12.6 g/dL (12.0-15.5); LYMPH # 1.4 x10^3/uL (1.0-4.8); LYMPH % 30 % (24-48); MEAN CORPUSCULAR HEMOGLOBIN 30 pg (25-35); MEAN CORPUSCULAR HGB CONC 33 g/dL (31-37); MEAN CORPUSCULAR VOLUME 93 fL (79-100); MONO # 0.4 x10^3/uL (0.0-1.1); MONO % 9 % (0-9); NEUT # 2.8 x10^3uL (1.8-7.7); NEUT % 59 % (31-73); PLATELET COUNT 320 x10^3/uL (140-400); RED BLOOD COUNT 4.16 x10^6/uL (3.50-5.40); RED CELL DISTRIBUTION WIDTH 16.9 % (11.5-14.5); WHITE BLOOD COUNT 4.7 x10^3/uL (4.0-11.0)
[2021-01-03 07:22] LABS: CALCIUM 8.7 mg/dL (8.5-10.1); CREATININE 0.9 mg/dL (0.6-1.0); POTASSIUM 3.7 mmol/L (3.5-5.1)
[2021-01-03 07:25] LABS: ACETAMIN < 2.0 mcg/mL (10-30); ETHANOL < 10 mg/dL (0-10)
--- NOTE | 2021-01-03 07:25 | PHYS DOC ---
Past History Past Medical History: Depression Additional Past Medical Histor: Trich, si (HENRIK KNUTSON MD) Past Surgical History: No Surgical History (HENRIK KNUTSON MD) Smoking: Cigarettes Alcohol Use: None (HENRIK KNUTSON MD) General Adult EDM: Chief Complaint: SUICIDAL IDEATION HPI: HPI: Patient is a 30-year-old female coming in via EMS for hallucinations and suicidal ideation. Patient states that she is hearing voices telling her to harm herself. Is not taking medications. History limited by patient cooperation. (HENRIK KNUTSON MD) Review of Systems: Review of Systems: All other systems within normal limits except for as noted in the HPI (HNERIK KNUTSON MD) Allergies: Allergies: Allergies Coded Allergies Type Severity Reaction Last Updated Verified No Known Drug Allergies 08/10/20 No (HENRIK KNUTSON MD) Physical Exam: PE: Constitutional: Well developed, well nourished, no acute distress, non-toxic appearance. [] HENT: Normocephalic, atraumatic, bilateral external ears normal, nose normal. [] Eyes: PERRLA, conjunctiva normal, no discharge. [] Neck: No rigidity, supple, no stridor. [] Cardiovascular: Regular rate and rhythm, brisk cap refill [] Lungs & Thorax: Non labored symmetric respirations, no tachypnea or respiratory distress [] Abdomen: Soft, nondistended. Skin: Warm, dry, no erythema, no rash. [] Back: Unremarkable Extremities: No deformities, range of motion grossly intact, no lower extremity edema [] Neurologic: Alert and oriented X 3, no focal deficits noted. [] Psychologic: Tearful, suicidal ideation. (HENRIK KNUTSON MD) Current Patient Data: Labs: Laboratory Tests Test 01/03/21 06:25 01/03/21 06:48 White Blood Count 4.7 x10^3/uL (4.0-11.0) Red Blood Count 4.16 x10^6/uL (3.50-5.40) Hemoglobin 12.6 g/dL (12.0-15.5) Hematocrit 38.5 % (36.0-47.0) Mean Corpuscular Volume 93 fL (79-100) Mean Corpuscular Hemoglobin 30 pg (25-35) Mean Corpuscular Hemoglobin Concent 33 g/dL (31-37) Red Cell Distribution Width 16.9 % (11.5-14.5) H Platelet Count 320 x10^3/uL (140-400) Neutrophils (%) (Auto) 59 % (31-73) Lymphocytes (%) (Auto) 30 % (24-48) Monocytes (%) (Auto) 9 % (0-9) Eosinophils (%) (Auto) 2 % (0-3) Basophils (%) (Auto) 1 % (0-3) Neutrophils # (Auto) 2.8 x10^3uL (1.8-7.7) Lymphocytes # (Auto) 1.4 x10^3/uL (1.0-4.8) Monocytes # (Auto) 0.4 x10^3/uL (0.0-1.1) Eosinophils # (Auto) 0.1 x10^3/uL (0.0-0.7) Basophils # (Auto) 0.0 x10^3/uL (0.0-0.2) Sodium Level 143 mmol/L (136-145) Potassium Level 3.7 mmol/L (3.5-5.1) Chloride Level 104 mmol/L (98-107) Carbon Dioxide Level 25 mmol/L (21-32) Anion Gap 14 (6-14) Blood Urea Nitrogen 18 mg/dL (7-20) Creatinine 0.9 mg/dL (0.6-1.0) Estimated GFR (Cockcroft-Gault) 89.0 BUN/Creatinine Ratio 20 (6-20) Glucose Level 98 mg/dL (70-99) Calcium Level 8.7 mg/dL (8.5-10.1) Total Bilirubin Pending Aspartate Amino Transferase (AST) Pending Alanine Aminotransferase (ALT) Pending Alkaline Phosphatase Pending Total Protein Pending Albumin Pending Albumin/Globulin Ratio Pending POC Urine HCG, Qualitative hcg negative (Negative) Vital Signs: Vital Signs Date Time Temp Pulse Resp B/P (MAP) Pulse Ox O2 Delivery O2 Flow Rate FiO2 01/03/21 06:11 98.6 99 16 114/89 100 (HENRIK KNUTSON MD) EKG: EKG: [] (HENRIK KNUTSON MD) Radiology/Procedures: Radiology/Procedures: [] (HENRIK KNUTSON MD) Heart Score: C/O Chest Pain: No Risk Factors: Risk Factors: DM, Current or recent (<one month) smoker, HTN, HLP, family history of CAD, obesity. Risk Scores: Score 0 - 3: 2.5% MACE over next 6 weeks - Discharge Home Score 4 - 6: 20.3% MACE over next 6 weeks - Admit for Clinical Observation Score 7 - 10: 72.7% MACE over next 6 weeks - Early Invasive Strategies (HENRIK KNUTSON MD) C/O Chest Pain: No (NU CAMERON MD) Course & Med Decision Making: Course & Med Decision Making After evaluation by PAT, information sent to [facility] after her rapid Covid came back negative. Patient refusing to speak with [facility] so they would not accept her. Still pending the Covid PCR to look into other placement options. Pending Covid PCR results and reevaluation by PAT at shift change. (HENRIK KNUTSON MD) Course & Med Decision Making Patient was seen by the psychiatric attache and cleared and safety plan, she is not suicidal and not a threat to harming herself or others at this time, she is medically clear, Patient was seen in the ED for medical and psychiatric evaluation, there is no apparent evidence of any emergency medical pathology at this time, patient was advised follow-up with their primary care provider /physician in the next 24-48 hours and to return to the ED before then if any new or worsening / concerning symptoms had developed. All questions and concerns were addressed at time of disposition Also the psychiatric attache given her multiple resources for outpatient follow-up for both mental health counseling and drug abuse (NU CAMERON MD) Dragon Disclaimer: Dragjohnny Disclaimer: This electronic medical record was generated, in whole or in part, using a voice recognition dictation system. (HENRIK KNUTSON MD) Departure Departure: Impression: Primary Impression: Auditory hallucinations Additional Impression: Drug abuse Disposition: 01 HOME / SELF CARE / HOMELESS Condition: IMPROVED Referrals: PCPKAVITA (PCP) Patient Instructions: Suicidal Feelings, How to Help Yourself Additional Instructions: You are being given referrals to guidance center, [facility] center, [facility], I recommend that you follow-up as you have agreed to the safety plan, please call in the morning, return to the nearest emergency room before follow- up with any new or concerning physical symptoms develop or if you have any thou ghts of harming your self or others HENRIK KNUTSON MD Jan 03, 2021 07:25 NU CAMERON MD Jan 03, 2021 23:05
[2021-01-03 07:29] LABS: ALBUMIN 4.3 g/dL (3.4-5.0); ALBUMIN/GLOBULIN RATIO 1.3 (1.0-1.7); TOTAL BILIRUBIN 0.6 mg/dL (0.2-1.0); TOTAL PROTEIN 7.7 g/dL (6.4-8.2)
[2021-01-03 07:38] LABS: BARBITURATES NEG (NEG); BENZODIAZEPINES NEG (NEG); CANNABINOIDS POS (NEG); COCAINE POS (NEG); METHADONE NEG (NEG); OPIATES NEG (NEG); PHENCYCLIDINE NEG (NEG)
[2021-01-03 07:43] LABS: BACTERIA,URINE MOD /HPF (0-FEW); BILIRUBIN,URINE SMALL (NEG); CLARITY,URINE HAZY; COLOR,URINE YELLOW; GLUCOSE,URINE NEG (NEG); NITRITE,URINE NEG (NEG); SQUAMOUS EPITHELIAL CELL,UR MANY /LPF
[2021-01-03 07:50] LABS: AMPHETAMINE/METHAMPHETAMINE POS (NEG)
[2021-01-03 23:40] VITALS: BP 112/76
== END 2021-01-03 23:39 | disposition home or self-care (01) ==
LOC: ER 06:11
DX: R44.0 Auditory hallucinations (principal); F19.10 Other psychoactive substance abuse, uncomplicated; R45.851 Suicidal ideations; F32.9 Major depressive disorder, single episode, unspecified; F17.210 Nicotine dependence, cigarettes, uncomplicated; Z20.822 Contact with and (suspected) exposure to COVID-19
CPT/HCPCS: 36415; 80053; 80307; 80329; 81001; 81025; 85025; 87086; 87426; 99285; G0480; U0003

== ENCOUNTER 2021-02-04 12:31 | Emergency (ER) | payer MEDICAID ==
--- NOTE | 2021-02-04 12:44 | PHYS DOC ---
Past History Past Medical History: Depression Additional Past Medical Histor: Trich, si (LAVELLE RAMSEY APRN) Past Surgical History: No Surgical History (LAVELLE RAMSEY APRN) Smoking: Cigarettes Alcohol Use: None (LAVELLE RAMSEY APRN) General Adult EDM: Chief Complaint: PSYCH EVALUATION HPI: HPI: Patient is a 30-year-old female being sent into the ER via EMS by her aunt for psych eval. Patient states that she has no concerns and does not want to be seen in the ER. Patient denies suicidal or homicidal ideation. She states that she feels safe in her home. Patient is alert and oriented x4. (LAVELLE RAMSEY APRN) Review of Systems: Review of Systems: 14 body systems of the review of systems have been reviewed. See HPI for pe rtinent positive and negative responses, otherwise all other systems are negative, nonpertinent or noncontributory (LAVELLE RAMSEY APRN) Allergies: Allergies: Allergies Coded Allergies Type Severity Reaction Last Updated Verified No Known Drug Allergies 08/10/20 No (LAVELLE RAMSEY APRN) Physical Exam: PE: Constitutional: Well developed, well nourished, no acute distress, non-toxic appearance. [] HENT: Normocephalic, atraumatic Eyes: PERRL, EOMI, conjunctiva normal, no discharge. [] Neck: Normal range of motion, no stridor Cardiovascular: Normal peripheral perfusion Lungs & Thorax: Normal work of breathing, no tachypnea Skin: Warm, dry, no erythema, no rash. [] Back: Normal range of motion Extremities: No tenderness, no cyanosis, no clubbing, ROM intact, no edema. [] Neurologic: Alert and oriented X 3, normal motor function, normal sensory function, no focal deficits noted. [] Psychologic: Affect normal, judgement normal, mood normal. [] (LAVELLE RAMSEY APRN) EKG: EKG: [] (LAVELLE RAMSEY APRN) Radiology/Procedures: Radiology/Procedures: [] (LAVELLE RAMSEY APRN) Heart Score: C/O Chest Pain: No Risk Factors: Risk Factors: DM, Current or recent (<one month) smoker, HTN, HLP, family history of CAD, obesity. Risk Scores: Score 0 - 3: 2.5% MACE over next 6 weeks - Discharge Home Score 4 - 6: 20.3% MACE over next 6 weeks - Admit for Clinical Observation Score 7 - 10: 72.7% MACE over next 6 weeks - Early Invasive Strategies (LAVELLE RAMSEY APRN) Course & Med Decision Making: Course & Med Decision Making Pertinent Labs and Imaging studies reviewed. (See chart for details) Patient is a 30-year-old female being sent in by her aunt for psychiatric evaluation via EMS. During triage patient, patient states that she does not want to be seen in the ER and that she thinks she is going to leave. Patient states that she has no concerns at this time. I offered patient to be evaluated by our psychiatric assessment team and she refused. Patient denies any suicidal or homicidal ideation. She states that she feels safe in her home. Patient is alert and oriented x4. Patient left without being seen Patient acknowledges the risks of leaving without being seen. Patient is capable of making her own decisions. Patient left prior to full physical exam and vital signs. She is ambulatory with a steady gait. (LAVELLE RAMSEY APRN) Dragon Disclaimer: Dragon Disclaimer: This electronic medical record was generated, in whole or in part, using a voice recognition dictation system. (LAVELLE RAMSEY APRN) Attending Co-Sign The patient was seen and interviewed as well as examined at the bedside. The chart was reviewed. The case was discussed. Agree with the plan of care. (PERCY FU DO) Departure Departure: Impression: Primary Impression: Encounter for psychiatric assessment Additional Impression: Patient left without being seen Disposition: 07 LEFT WITHOUT BEING SEEN Condition: STABLE Referrals: PCP,NO (PCP) LAVELLE RAMSEY APRN Feb 04, 2021 12:44 PERCY FU DO Feb 05, 2021 06:18
== END 2021-02-04 12:40 | disposition left against medical advice (07) ==
LOC: ER 12:31
DX: Z00.8 Encounter for other general examination (principal); F32.9 Major depressive disorder, single episode, unspecified; F17.210 Nicotine dependence, cigarettes, uncomplicated
CPT/HCPCS: 99283

== ENCOUNTER 2021-03-05 14:13 | Emergency (ER) | payer MEDICAID ==
[~2021-03-05] VITALS: Ht 160 cm; Wt 45.0 kg
--- NOTE | 2021-03-05 15:06 | PHYS DOC ---
Past History Past Medical History: Depression Additional Past Medical Histor: Trich, si (LAVELLE RAMSEY APRN) Past Surgical History: No Surgical History (LAVELLE RAMSEY APRN) Smoking: Cigarettes Alcohol Use: None (LAVELLE RAMSEY APRN) General Adult EDM: Chief Complaint: PSYCH EVALUATION HPI: HPI: Patient is a 30-year-old female who presents to the ER for suicidal ideation without a plan. Patient is speaking in third person she is very tearful and is rambling. She states that she has auditory hallucinations but will not tell me what they are telling her. She denies any visual hallucinations or any pain. She has a diagnosis of schizophrenia but does not take any medications. She does not follow-up outpatient. She states that she has had inpatient psychiatric hospitalizations in the past. Patient denies that attempts today for suicide but she states that yesterday she drank some cleaning solution and in the past she has tried to kill herself by slitting her wrist. (LAVELLE RAMSEY APRN) Review of Systems: Review of Systems: 14 body systems of the review of systems have been reviewed. See HPI for p ertinent positive and negative responses, otherwise all other systems are negative, nonpertinent or noncontributory (LAVELLE RAMSEY APRN) Current Medications: Current Meds: Current Medications Medications (Trade) Dose Ordered Sig/Bogdan Start Time Stop Time Status Last Admin Dose Admin Lorazepam (Ativan Inj) 2 mg STK-MED ONCE 03/05/21 14:48 03/05/21 14:49 DC (LAVELLE RAMSEY APRN) Allergies: Allergies: Allergies Coded Allergies Type Severity Reaction Last Updated Verified No Known Drug Allergies 08/10/20 No (LAVELLE RAMSEY APRN) Physical Exam: PE: Constitutional: Well developed, well nourished, no acute distress, non-toxic appearance. [] HENT: Normocephalic, atraumatic, bilateral external ears normal, oropharynx moist, no oral exudates, nose normal. [] Eyes: PERRL, EOMI, conjunctiva normal, no discharge. [] Neck: Normal range of motion, no stridor Cardiovascular:Heart rate tachycardic rhythm, no murmur [] Lungs & Thorax: Bilateral breath sounds clear to auscultation [] Abdomen: Soft and flat Skin: Warm, dry, no erythema, no rash. [] Back: Normal range of motion Extremities: No tenderness, no cyanosis, no clubbing, ROM intact, no edema. [] Neurologic: Alert and oriented X 3, normal motor function, normal sensory function, no focal deficits noted. [] Psychologic: Tearful, having auditory hallucinations she states, rambling speech (LAVELLE RAMSEY APRN) Current Patient Data: Labs: Laboratory Tests Test 03/05/21 15:00 03/05/21 15:15 03/05/21 15:23 03/05/21 15:30 White Blood Count 6.9 x10^3/uL Red Blood Count 3.96 x10^6/uL Hemoglobin 11.9 g/dL Hematocrit 36.4 % Mean Corpuscular Volume 92 fL Mean Corpuscular Hemoglobin 30 pg Mean Corpuscular Hemoglobin Concent 33 g/dL Red Cell Distribution Width 16.0 % Platelet Count 270 x10^3/uL Neutrophils (%) (Auto) 61 % Lymphocytes (%) (Auto) 27 % Monocytes (%) (Auto) 10 % Eosinophils (%) (Auto) 2 % Basophils (%) (Auto) 0 % Neutrophils # (Auto) 4.2 x10^3uL Lymphocytes # (Auto) 1.9 x10^3/uL Monocytes # (Auto) 0.7 x10^3/uL Eosinophils # (Auto) 0.1 x10^3/uL Basophils # (Auto) 0.0 x10^3/uL Sodium Level 141 mmol/L Potassium Level 3.5 mmol/L Chloride Level 106 mmol/L Carbon Dioxide Level 26 mmol/L Anion Gap 9 Blood Urea Nitrogen 14 mg/dL Creatinine 0.8 mg/dL Estimated GFR (Cockcroft-Gault) 101.9 BUN/Creatinine Ratio 18 Glucose Level 98 mg/dL Calcium Level 8.7 mg/dL Total Bilirubin 0.6 mg/dL Aspartate Amino Transf (AST/SGOT) 18 U/L Alanine Aminotransferase (ALT/SGPT) 20 U/L Alkaline Phosphatase 54 U/L Total Protein 7.5 g/dL Albumin 3.9 g/dL Albumin/Globulin Ratio 1.1 SARS-CoV-2 Antigen (Rapid) Negative Bedside Urine HCG, Qualitative hcg negative Urine Collection Type Unknown Urine Color Ruth Urine Clarity Cloudy Urine pH 6.0 Urine Specific [place] >=1.030 Urine Protein 100 mg/dl Urine Glucose (UA) Neg mg/dL Urine Ketones (Stick) Neg mg/dL Urine Blood Large Urine Nitrite Neg Urine Bilirubin Neg Urine Urobilinogen Dipstick 1.0 mg/dL Urine Leukocyte Esterase Neg Urine RBC >40 /HPF Urine WBC Occ /HPF Urine Squamous Epithelial Cells Mod /LPF Urine Bacteria 0 /HPF Urine Hyaline Casts Occ /HPF Urine Mucus Marked /LPF Urine Opiates Screen Neg Urine Methadone Screen Neg Urine Barbiturates Neg Urine Phencyclidine Screen Neg Urine Amphetamine/Methamphetamine Neg Urine Benzodiazepines Screen Neg Urine Cocaine Screen Pos Urine Cannabinoids Screen Pos Urine Ethyl Alcohol Neg Current Medications Medications (Trade) Dose Ordered Sig/Bogdan Route PRN Reason Start Time Stop Time Status Last Admin Dose Admin Lorazepam (Ativan Inj) 1 mg 1X ONCE IVP 03/05/21 14:45 03/05/21 14:48 DC 03/05/21 15:13 Lorazepam (Ativan Inj) 2 mg STK-MED ONCE .ROUTE 03/05/21 14:48 03/05/21 14:49 DC Ondansetron HCl (Zofran Odt) 4 mg 1X ONCE PO 03/05/21 15:15 03/05/21 15:16 DC 03/05/21 15:14 (LAVELLE RAMSEY APRN) EKG: EKG: [] (LAVELLE RAMSEY APRN) Radiology/Procedures: Radiology/Procedures: [] (LAVELLE RAMSEY APRN) Heart Score: C/O Chest Pain: No Risk Factors: Risk Factors: DM, Current or recent (<one month) smoker, HTN, HLP, family history of CAD, obesity. Risk Scores: Score 0 - 3: 2.5% MACE over next 6 weeks - Discharge Home Score 4 - 6: 20.3% MACE over next 6 weeks - Admit for Clinical Observation Score 7 - 10: 72.7% MACE over next 6 weeks - Early Invasive Strategies (LAVELLE RAMSEY APRN) Course & Med Decision Making: Course & Med Decision Making Pertinent Labs and Imaging studies reviewed. (See chart for details) [] Patient is a 30-year-old female who presents to the ER for suicidal ideation. Work-up in the ER consisted of screening lab work for psychiatric assessment team evaluation. Due to patient's anxiety and behavior, she was given Ativan which she accepted. Patient be evaluated by the psychiatric assessment team. Patient's blood work is unremarkable. Her urinalysis showed some blood but patient believes she is on her menstrual cycle. Urine drug screen was positive for marijuana and cocaine. I spoke to the psychiatric assessment team and they are attempting to place patient at [facility] and is pending at this time. [id number]. 2114: [facility]. She states that she is attempting to place patient at a drug rehab facility but they will not accept unless they have a COVID-19 PCR test which is pending and likely will not be resulted until the morning. Patient continues to be calm and cooperative with care. 2156: I discussed patients case with ED physician and he will assume patient care at this time. Care transferred at 2157. (LAVELLE RAMSEY APRN) Course & Med Decision Making I assumed entirety of patient care after PROOFSHEET CORRECTOR shift ended. No remarkable and/or noteworthy events overnight. Patient still pending inpatient psych transfer. Signout given to oncoming physician 03/06/21 AM (VERO WALKER DO) Seb Disclaimer: Seb Disclaimer: This electronic medical record was generated, in whole or in part, using a voice recognition dictation system. (LAVELLE RAMSEY APRN) Attending Co-Sign The patient was seen and interviewed as well as examined at the bedside. The chart was reviewed. The case was discussed. Agree with the plan of care. (PERCY FU DO) Departure Departure: Impression: Primary Impression: Suicidal ideation Additional Impression: Schizophrenic episode, acute Referrals: PCP,NO (PCP) LAVELLE RAMSEY APRN Mar 05, 2021 15:06 VERO WALKER DO Mar 06, 2021 05:59 PERCY FU DO Mar 06, 2021 09:38
[2021-03-05] MEDS ORDERED: ONDANSETRON ODT 4 MG TAB.RAPDIS PO ONE (15:15)
[2021-03-05 15:46] LABS: BASO % 0 % (0-3); EOS # 0.1 x10^3/uL (0.0-0.7); EOS % 2 % (0-3); HEMATOCRIT 36.4 % (36.0-47.0); HEMOGLOBIN 11.9 g/dL (12.0-15.5); LYMPH # 1.9 x10^3/uL (1.0-4.8); LYMPH % 27 % (24-48); MEAN CORPUSCULAR HEMOGLOBIN 30 pg (25-35); MEAN CORPUSCULAR HGB CONC 33 g/dL (31-37); MEAN CORPUSCULAR VOLUME 92 fL (79-100); MONO # 0.7 x10^3/uL (0.0-1.1); MONO % 10 % (0-9); NEUT # 4.2 x10^3uL (1.8-7.7); NEUT % 61 % (31-73); PLATELET COUNT 270 x10^3/uL (140-400); RED BLOOD COUNT 3.96 x10^6/uL (3.50-5.40); WHITE BLOOD COUNT 6.9 x10^3/uL (4.0-11.0)
[2021-03-05 16:00] LABS: CALCIUM 8.7 mg/dL (8.5-10.1); CREATININE 0.8 mg/dL (0.6-1.0); GFR 101.9; POTASSIUM 3.5 mmol/L (3.5-5.1)
[2021-03-05 16:04] LABS: ALBUMIN 3.9 g/dL (3.4-5.0); ALBUMIN/GLOBULIN RATIO 1.1 (1.0-1.7); TOTAL BILIRUBIN 0.6 mg/dL (0.2-1.0); TOTAL PROTEIN 7.5 g/dL (6.4-8.2)
[2021-03-05 16:06] LABS: BARBITURATES NEG (NEG); BENZODIAZEPINES NEG (NEG); CANNABINOIDS POS (NEG); COCAINE POS (NEG); METHADONE NEG (NEG); OPIATES NEG (NEG); PHENCYCLIDINE NEG (NEG)
[2021-03-05 16:08] LABS: AMPHETAMINE/METHAMPHETAMINE NEG (NEG)
[2021-03-05 16:36] LABS: BACTERIA,URINE 0 /HPF (0-FEW); BILIRUBIN,URINE NEG (NEG); CLARITY,URINE CLOUDY; COLOR,URINE AMBER; GLUCOSE,URINE NEG (NEG); HYALINE CASTS, URINE OCC /HPF; NITRITE,URINE NEG (NEG); RBC,URINE >40 /HPF (0-2); SQUAMOUS EPITHELIAL CELL,UR MOD /LPF; WBC,URINE OCC /HPF (0-4)
[2021-03-06 08:45] VITALS: BP 90/52
== END 2021-03-06 09:55 | disposition home or self-care (01) ==
LOC: ER 14:13
DX: R45.851 Suicidal ideations (principal); F23 Brief psychotic disorder; F32.9 Major depressive disorder, single episode, unspecified; Z20.822 Contact with and (suspected) exposure to COVID-19
CPT/HCPCS: 80053; 80307; 81001; 81025; 85025; 87426; 96374; 99285; J2060; Q0162; U0003

== ENCOUNTER 2021-05-21 13:27 | Emergency (ER) | payer MEDICAID ==
[~2021-05-21] VITALS: Ht 157.5 cm; Wt 44.5 kg
[2021-05-21 14:10] LABS: BASO # 0.1 x10^3/uL (0.0-0.2); BASO % 2 % (0-3); EOS # 0.1 x10^3/uL (0.0-0.7); EOS % 2 % (0-3); HEMATOCRIT 39.1 % (36.0-47.0); HEMOGLOBIN 12.7 g/dL (12.0-15.5); LYMPH # 1.8 x10^3/uL (1.0-4.8); LYMPH % 34 % (24-48); MEAN CORPUSCULAR HEMOGLOBIN 30 pg (25-35); MEAN CORPUSCULAR HGB CONC 33 g/dL (31-37); MEAN CORPUSCULAR VOLUME 91 fL (79-100); MONO # 0.4 x10^3/uL (0.0-1.1); MONO % 8 % (0-9); NEUT # 2.8 x10^3uL (1.8-7.7); NEUT % 55 % (31-73); PLATELET COUNT 345 x10^3/uL (140-400); RED CELL DISTRIBUTION WIDTH 15.4 % (11.5-14.5); WHITE BLOOD COUNT 5.1 x10^3/uL (4.0-11.0)
[2021-05-21 14:18] LABS: AMPHETAMINE/METHAMPHETAMINE NEG (NEG); BARBITURATES NEG (NEG); BENZODIAZEPINES NEG (NEG); CANNABINOIDS POS (NEG); CLARITY,URINE CLEAR; COCAINE POS (NEG); COLOR,URINE YELLOW; METHADONE NEG (NEG); OPIATES NEG (NEG); PHENCYCLIDINE POS (NEG)
[2021-05-21 14:19] LABS: BACTERIA,URINE 0 /HPF (0-FEW); BILIRUBIN,URINE SMALL (NEG); GLUCOSE,URINE NEG (NEG); NITRITE,URINE NEG (NEG); RBC,URINE 0 /HPF (0-2); SQUAMOUS EPITHELIAL CELL,UR MOD /LPF; WBC,URINE 0 /HPF (0-4)
[2021-05-21 14:22] LABS: CALCIUM 8.6 mg/dL (8.5-10.1); GFR 78.2; POTASSIUM 3.1 mmol/L (3.5-5.1)
--- NOTE | 2021-05-21 14:22 | EKG ---
[address] [address] Test Date: 2021-05-21 Test Time: 14:00:18 Pat Name: HENRIK SHERMAN Department: Room: Gender: F Inside Steward/Stewardess: CASSIE : 1990 Requested By: PHILLIP GAMBLE Order Number: [id number] Reading MD: Measurements Intervals [place] Rate: 84 P: 52 OK: 130 QRS: 46 QRSD: 70 T: 44 QT: 368 QTc: 438 Interpretive Statements SINUS RHYTHM ATRIAL PREMATURE COMPLEX(ES) OTHERWISE NORMAL ECG RI6.02 No previous ECG available for comparison
[2021-05-21] MEDS ORDERED: POTASSIUM CHLORIDE 20 MEQ TABLET.ER. PO ONE (15:00)
--- NOTE | 2021-05-21 15:30 | PHYS DOC ---
Past History Past Medical History: Depression Additional Past Medical Histor: suicide attempts (PHILLIP GAMBLE APRN) Past Surgical History: No Surgical History (PHILLIP GAMBLE APRN) Smoking: Cigarettes Alcohol Use: None (PHILLIP GAMBLE APRN) General Adult EDM: Chief Complaint: SUICIDAL IDEATION HPI: HPI: Patient is a 31-year-old female presents with suicidal ideation. Patient states "I used cocaine prior to coming to the ER, I just went up with to quit ". "I was going to jump in the river if I can find someone to help me". Patient is not currently taking any psychiatric meds. Patient has history of depression. (PHILLIP GAMBLE APRN) Review of Systems: Review of Systems: ROS At least 10 ROS systems have been reviewed and are negative except as documented in the HPI. General: Negative except as outlined in HPI above. Skin: Negative except as outlined in HPI above. HEENT: Negative except as outlined in HPI above. Neck: Negative except as outlined in HPI above. Respiratory: Negative except as outlined in HPI above.. Cardiovascular: Negative except as outlined in HPI above. Abdomen: Negative except as outlined in HPI above. : Negative except as outlined in HPI above. Back/MSK: Negative except as outlined in HPI above. Neuro: Negative except as outlined in HPI above. Psych: Negative except as outlined in HPI above. (PHILLIP GAMBLE APRN) Current Medications: Current Meds: Current Medications Medications (Trade) Dose Ordered Sig/Bogdan Start Time Stop Time Status Last Admin Dose Admin Potassium Chloride (Klor-Con) 40 meq 1X ONCE 05/21/21 15:00 05/21/21 15:01 UNV (PHILLIP GAMBLE APRN) Allergies: Allergies: Allergies Coded Allergies Type Severity Reaction Last Updated Verified No Known Drug Allergies 08/10/20 No (PHILLIP GAMBLE APRN) Physical Exam: PE: Constitutional: Well developed, well nourished, no acute distress, non-toxic appearance. [] HENT: Normocephalic, atraumatic, bilateral external ears normal, oropharynx moist, no oral exudates, nose normal. [] Eyes: PERRLA, EOMI, conjunctiva normal, no discharge. [] Neck: Normal range of motion, no tenderness, supple, no stridor. [] Cardiovascular:Heart rate regular rhythm, no murmur [] Lungs & Thorax: Bilateral breath sounds clear to auscultation [] Abdomen: Bowel sounds normal, soft, no tenderness, no masses, no pulsatile masses. [] Skin: Warm, dry, no erythema, no rash. [] Back: No tenderness, no CVA tenderness. [] Extremities: No tenderness, no cyanosis, no clubbing, ROM intact, no edema. [] Neurologic: Alert and oriented X 3, normal motor function, normal sensory function, no focal deficits noted. [] Psychologic: Affect flat judgement normal, mood somber [] (PHILLIP GAMBLE APRN) Current Patient Data: Labs: Laboratory Tests Test 05/21/21 13:39 05/21/21 13:45 05/21/21 13:50 05/21/21 13:58 White Blood Count 5.1 x10^3/uL (4.0-11.0) Red Blood Count 4.30 x10^6/uL (3.50-5.40) Hemoglobin 12.7 g/dL (12.0-15.5) Hematocrit 39.1 % (36.0-47.0) Mean Corpuscular Volume 91 fL (79-100) Mean Corpuscular Hemoglobin 30 pg (25-35) Mean Corpuscular Hemoglobin Concent 33 g/dL (31-37) Red Cell Distribution Width 15.4 % (11.5-14.5) H Platelet Count 345 x10^3/uL (140-400) Neutrophils (%) (Auto) 55 % (31-73) Lymphocytes (%) (Auto) 34 % (24-48) Monocytes (%) (Auto) 8 % (0-9) Eosinophils (%) (Auto) 2 % (0-3) Basophils (%) (Auto) 2 % (0-3) Neutrophils # (Auto) 2.8 x10^3uL (1.8-7.7) Lymphocytes # (Auto) 1.8 x10^3/uL (1.0-4.8) Monocytes # (Auto) 0.4 x10^3/uL (0.0-1.1) Eosinophils # (Auto) 0.1 x10^3/uL (0.0-0.7) Basophils # (Auto) 0.1 x10^3/uL (0.0-0.2) Sodium Level 139 mmol/L (136-145) Potassium Level 3.1 mmol/L (3.5-5.1) L Chloride Level 102 mmol/L (98-107) Carbon Dioxide Level 23 mmol/L (21-32) Anion Gap 14 (6-14) Blood Urea Nitrogen 16 mg/dL (7-20) Creatinine 1.0 mg/dL (0.6-1.0) Estimated GFR (Cockcroft-Gault) 78.2 Glucose Level 67 mg/dL (70-99) L Calcium Level 8.6 mg/dL (8.5-10.1) Urine Collection Type Clean catch Urine Color Yellow Urine Clarity Clear Urine pH 6.0 Urine Specific [place] >=1.030 Urine Protein 30 mg/dl (NEG-TRACE) Urine Glucose (UA) Neg mg/dL (NEG) Urine Ketones (Stick) 40 mg/dL (NEG) Urine Blood Neg (NEG) Urine Nitrite Neg (NEG) Urine Bilirubin Small (NEG) Urine Urobilinogen Dipstick 1.0 mg/dL (0.2 mg/dL) Urine Leukocyte Esterase Neg (NEG) Urine RBC 0 /HPF (0-2) Urine WBC 0 /HPF (0-4) Urine Squamous Epithelial Cells Mod /LPF Urine Bacteria 0 /HPF (0-FEW) Urine Mucus Mod /LPF Urine Opiates Screen Neg (NEG) Urine Methadone Screen Neg (NEG) Urine Barbiturates Neg (NEG) Urine Phencyclidine Screen Pos (NEG) Urine Amphetamine/Methamphetamine Neg (NEG) Urine Benzodiazepines Screen Neg (NEG) Urine Cocaine Screen Pos (NEG) Urine Cannabinoids Screen Pos (NEG) Urine Ethyl Alcohol Neg (NEG) SARS-CoV-2 Antigen (Rapid) Negative (NEGATIVE) POC Urine HCG, Qualitative hcg negative (Negative) Vital Signs: Vital Signs Date Time Temp Pulse Resp B/P (MAP) Pulse Ox O2 Delivery O2 Flow Rate FiO2 05/21/21 13:31 96 18 114/75 (88) 100 Room Air (PHILLIP GAMBLE APRN) EKG: EKG: Heart rate 84 bpm. Sinus rhythm. [] (PHILLIP GAMBLE APRN) Radiology/Procedures: Radiology/Procedures: [] (PHILLIP GAMBLE APRN) Heart Score: C/O Chest Pain: No Risk Factors: Risk Factors: DM, Current or recent (<one month) smoker, HTN, HLP, family history of CAD, obesity. Risk Scores: Score 0 - 3: 2.5% MACE over next 6 weeks - Discharge Home Score 4 - 6: 20.3% MACE over next 6 weeks - Admit for Clinical Observation Score 7 - 10: 72.7% MACE over next 6 weeks - Early Invasive Strategies (PHILLIP GAMBLE APRN) Course & Med Decision Making: Course & Med Decision Making Pertinent Labs and Imaging studies reviewed. (See chart for details) [] 31-year-old presents with suicidal ideation. Patient has used cocaine prior to arrival trying to get the voices to stop. Patient threatening to jump in the river to commit suicide if she does not get help. Patient is not currently on any of her psychiatric meds. Work-up in ER consisted of EKG, blood work, UDS, urine . All lab work unremarkable. Urine drug screen positive for cocaine, marijuana, PCP. PAT team consulted to speak with patient. After PAT team spoke with patient. Attempting to find placement [facility] for further psychiatric help med adjustments. Patient is okay with prior [facility] placement and has been there in the past. Rapid Covid is negative. [facility] has accepted patient. Patient will go by EMS to [facility]. (PHILLIP GAMBLE APRN) Dragon Disclaimer: Dragon Disclaimer: This electronic medical record was generated, in whole or in part, using a voice recognition dictation system. (PHILLIP GAMBLE APRN) Attending Co-Sign The patient was seen and interviewed as well as examined at the bedside. The chart was reviewed. The case was discussed. Agree with the plan of care. (PERCY FU DO) Departure Departure: Impression: Primary Impression: Suicidal ideation Additional Impression: Encounter for psychiatric assessment Disposition: HOME / SELF CARE / HOMELESS Condition: STABLE Referrals: PCP,NO (PCP) Patient Instructions: Suicidal Feelings, How to Help Yourself Additional Instructions: You were seen in the emergency room for suicidal ideation. You have been accepted to [facility] to be seen for further management. You will be transferred over by EMS. EMERGENCY DEPARTMENT GENERAL DISCHARGE INSTRUCTIONS Thank you for coming to [facility] (ED) today and trusting us with you care. We trust that you had a positivie experience in our Emergency Department. If you wish to speak to the department management, you may call the director at [phone]. YOUR FOLLOW UP INSTRUCTIONS ARE FOLLOWS: 1. Do you have a private Doctor? If you do not have a private doctor, please ask for a resource list of physicians or clinics that may be able to assist you with follow up care. 2. The Emergency Physician has interpreted your x-rays. The X-Ray specialist will also review them. If there is a change in the findings, you will be notified in 48 hours when at all possible. 3. A lab test or culture has been done, your results will be reviewed and you will be notified if you need a change in treatment. ADDITIONAL INSTRUCTIONS AND INFORMATION: 1. Your care today has been supervised by a physician who is specially trained in emergency care. Many problems require more than one evaluation for a complete diagnosis and treatment. We recommend that you schedule your follow up appointment as recommended to ensure complete treatment of you illness or injury. If you are unable to obtain follow up care and continue to have a problem, or if your condition worsens, we recommend that you return to the ED. 2. We are not able to safely determine your condition over the phone nor are we able to give sound medical advice over the phone. For these safety reasons, if you call for medical advice we will ask you to come to the ED for further evaluation. 3. If you have any questions regarding these discharge instructions please call the ED at [phone]. SAFETY INFORMATION: In the interest of safety, wellness, and injury prevention; we encourage you to wear your sealbelt, if you smoke; quite smoking, and we encourage family to use a protective helmet for bicycling and other sporting events that present an increased risk for head injury. IF YOUR SYMPTOMS WORSEN OR NEW SYMPTOMS DEVELOP, OR YOU HAVE CONCERNS ABOUT YOUR CONDITION; OR IF YOUR CONDITION WORSENS WHILE YOU ARE WAITING FOR YOUR FOLLOW UP APPOINTMENT; EITHER CONTACT YOUR PRIMARY CARE DOCTOR, THE PHYSICIAN WHOSE NAME AND NUMBER YOU WERE GIVEN, OR RETURN TO THE ED IMMEDIATELY. PHILLIP GAMBLE APRN May 21, 2021 15:30 PERCY FU DO May 22, 2021 16:03
[2021-05-21 17:49] VITALS: BP 110/72
== END 2021-05-21 17:50 | disposition home or self-care (01) ==
LOC: ER 13:27
DX: Z00.8 Encounter for other general examination (principal); U07.1 COVID-19; R45.851 Suicidal ideations; F32.9 Major depressive disorder, single episode, unspecified; F17.210 Nicotine dependence, cigarettes, uncomplicated
CPT/HCPCS: 80048; 80307; 81001; 81025; 85025; 87426; 93005; 99285; C9803; U0003